=== PATIENT | male | born 1960 | race African-American/Black ===

== ENCOUNTER 2017-05-30 10:11 | Emergency (ER) | payer BC ==
[2017-05-30] MEDS ORDERED: Ketorolac Tromethamine 60 MG/2 ML VIAL ONE (10:39)
== END 2017-05-30 11:11 | disposition home or self-care (01) ==
LOC: SCSER 10:11
DX: M54.5 Low back pain (principal); E78.5 Hyperlipidemia, unspecified; I10 Essential (primary) hypertension
CPT/HCPCS: 96372; J1885

== ENCOUNTER 2017-12-19 16:12 | Emergency (ER) | payer BC ==
[2017-12-19] MEDS ORDERED: Ketorolac Tromethamine 30 MG/ML VIAL ONE (16:43)
--- NOTE | 2017-12-19 17:00 | RAD ---
3 VIEWS LUMBAR SPINE: Date: 12/19/17 COMPARISON: None. HISTORY: Low back pain. FINDINGS: Clips in right upper quadrant suggest prior cholecystectomy. There is extensive postoperative hardwar e associated with the acetabulum on the right/right hemipelvis. There is a right total hip arthroplas ty. The pedicles of the lumbar spine appear intact on frontal imaging. There is facet hypertrophy at L3-4, L4-5, and L5-S1. At L3-4 and L5-S1, there is disc space narrowing and anterior osteophyte formation. There is also mild disc space narrowing and anterior osteophyte f ormation at T12-L1 and L1-2. There is no acute fracture. There is no anterolisthesis or retrolisthesi s noted. 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 No acute osseous abnormality. If there are radicular symptoms, a follow-up MRI may be beneficial. POS: [facility]
== END 2017-12-19 17:05 | disposition home or self-care (01) ==
LOC: SCSER 16:12
DX: M54.5 Low back pain (principal); E78.5 Hyperlipidemia, unspecified; I10 Essential (primary) hypertension; Z79.899 Other long term (current) drug therapy; X50.1XXA Overexertion from prolonged static or awkward postures, initial encounter; Y99.0 Civilian activity done for income or pay
CPT/HCPCS: 72100; 96372; J1885

== ENCOUNTER 2018-05-20 13:53 | Emergency (ER) | payer BC ==
[2018-05-20] MEDS ORDERED: Ketorolac Tromethamine 60 MG/2 ML VIAL ONE (14:30)
== END 2018-05-20 14:50 | disposition home or self-care (01) ==
LOC: SCSER 13:53
DX: M17.12 Unilateral primary osteoarthritis, left knee (principal); E78.5 Hyperlipidemia, unspecified; I10 Essential (primary) hypertension; Z79.899 Other long term (current) drug therapy
CPT/HCPCS: 96372; J1885

== ENCOUNTER 2022-06-15 10:30 | Outpatient (CLI) | payer MEDICARE | END 2022-06-15 10:31 | disposition home or self-care (01) | LOC: SCSMRI 10:30 | PROVIDERS: ATTEND Family Medicine | DX: M47.26 Other spondylosis with radiculopathy, lumbar region (principal); M48.061 Spinal stenosis, lumbar region without neurogenic claudication; M43.16 Spondylolisthesis, lumbar region; M48.07 Spinal stenosis, lumbosacral region | CPT/HCPCS: 72100; 72148 ==